=== PATIENT | female | born 1950 | race Caucasian/White ===

== ENCOUNTER → 2017-12-10 | Outpatient (CLI) | payer MEDICARE, OTHER | LOC: M.RAD 08:18 | DX: Z12.31 Encounter for screening mammogram for malignant neoplasm of breast (principal) ==

== ENCOUNTER → 2018-05-13 | Outpatient (CLI) | payer MEDICARE, OTHER | LOC: M.RAD 15:08 | DX: M81.0 Age-related osteoporosis without current pathological fracture (principal); Z78.0 Asymptomatic menopausal state ==

== ENCOUNTER → 2018-06-17 | Outpatient (CLI) | payer MEDICARE, OTHER | LOC: M.CT 07:09 | DX: M43.17 Spondylolisthesis, lumbosacral region (principal); K62.89 Other specified diseases of anus and rectum; K62.5 Hemorrhage of anus and rectum; K57.30 Diverticulosis of large intestine without perforation or abscess without bleeding; N13.2 Hydronephrosis with renal and ureteral calculous obstruction; K44.9 Diaphragmatic hernia without obstruction or gangrene; R10.84 Generalized abdominal pain ==

== ENCOUNTER → 2018-06-26 | Outpatient (CLI) | payer MEDICARE, OTHER | LOC: M.MRI 06-24 08:30 | DX: M47.817 Spondylosis without myelopathy or radiculopathy, lumbosacral region (principal); M41.86 Other forms of scoliosis, lumbar region; M51.27 Other intervertebral disc displacement, lumbosacral region; M48.061 Spinal stenosis, lumbar region without neurogenic claudication; M43.17 Spondylolisthesis, lumbosacral region ==

== ENCOUNTER → 2018-12-26 | Outpatient (CLI) | payer MEDICARE, OTHER | LOC: M.RAD 09:05 | DX: Z12.31 Encounter for screening mammogram for malignant neoplasm of breast (principal) ==

== ENCOUNTER 2019-09-11 08:38 | Emergency (ER) | payer MEDICARE, OTHER ==
[~2019-09-11] VITALS: Ht 157.5 cm; Wt 65.8 kg
[2019-09-11] MEDS ORDERED: OMEPRAZOLE40 MG PO (08:50)
[2019-09-11] MEDS ORDERED: EVISTA PO (08:50)
[2019-09-11] MEDS ORDERED: SIMVASTATIN80 MG PO (08:50)
[2019-09-11] MEDS ORDERED: FISH OIL 1,001000 M3 PO (08:51)
[2019-09-11] MEDS ORDERED: SUPER-D3+ SOFT1 EACH PO (08:52)
[2019-09-11] MEDS ORDERED: CALTRATE 600 +1 EAC1 PO (08:53)
[2019-09-11] MEDS ORDERED: LATANOPROST 0.2.5 ML OPHTHALMIC (08:54)
[2019-09-11] MEDS ORDERED: ASA81BEC PO (08:54)
[2019-09-11] MEDS ORDERED: OCUVITE ADULT1 EAC1 PO (08:55)
[2019-09-11] MEDS ORDERED: MONTELUKAST SODI4 M1 PO (08:55)
[2019-09-11] MEDS ORDERED: PEPCID40 MG PO (08:56)
[2019-09-11 09:16] LABS: HEMATOCRIT 47.2 % (37.0-47.0); HEMOGLOBIN 15.9 gm/dL (12.0-15.0); MCH 31.4 pg (26.0-34.0); MCHC 33.8 g/dL (28.0-37.0); MCV 93.2 fL (80.0-100.0); MPV 8.8 fl. (7.2-11.1); NUCLEATED RBCS 0 /100WBC; PLATELET COUNT* 280 thou/uL (150-400); RBC 5.06 mil/uL (4.20-5.00); RDW-CV 13.5 % (10.5-14.5)
[2019-09-11 09:20] LABS: CALCIUM 8.6 mg/dL (8.5-10.1); CREATININE 1.5 mg/dL (0.6-1.3); POTASSIUM 3.8 mmol/L (3.5-5.1)
[2019-09-11 09:24] LABS: ALBUMIN 4.3 g/dL (3.4-5.0); TOTAL BILIRUBIN 0.6 mg/dL (<0.1-1.0); TOTAL PROTEIN 8.5 g/dL (6.4-8.2)
[2019-09-11 09:52] LABS: ABSOLUTE LYMPHOCYTES 0.7 thou/uL (0.8-5.3); ABSOLUTE MONOCYTES 0.3 thou/uL (0.0-1.2); ABSOLUTE NEUTROPHILS 12.1 thou/uL (1.6-8.1); ANISOCYTOSIS 1+; PLATELET ESTIMATE ADEQUATE; POIKILOCYTOSIS 1+
[2019-09-11 10:19] LABS: URINE BILIRUBIN NEGATIVE (Negative); URINE BLOOD TRACE (Negative); URINE CLARITY CLEAR; URINE COLOR YELLOW; URINE GLUCOSE-RANDOM NEGATIVE (Negative); URINE KETONES NEGATIVE (Negative); URINE LEUKOCYTES-REFLEX NEGATIVE (Negative); URINE NITRITE-REFLEX NEGATIVE (Negative); URINE PROTEIN 1+ (Negative); URINE SPECIFIC GRAVITY 1.025 (1.005-1.030); URINE UROBILINOGEN 0.2 E.U./dl (0.2-1.0)
[2019-09-11] MEDS ORDERED: LOPERAMIDE 2 MG2 M1 PO (10:56)
--- NOTE | 2019-09-11 11:19 | EKG ---
[place] [address] ELECTROCARDIOGRAM REPORT Name: RUBINA SCHRADER Room: [facility]#: [id number] Admission: 09/11/19 Attend Phys: Discharge: Date of : 46 Date of Service: 09/11/19 0851 Report #: [id number] THIS REPORT FOR: cc: Lisa Woodard Linda J. DO Holkins, John M. MD [facility] ~ THIS REPORT FOR: //name// [facility] ED Test Date: 2019-09-11 Test Time: 08:51:00 Pat Name: RUBINA SCHRADER Department: Room: Gender: F Cad Intern: [facility] : 1950 Requested By: Daniel Stinson Order Number: [id number] MD: Buck Patton Measurements Intervals [place] Rate: 117 P: 35 OK: 115 QRS: 64 QRSD: 83 T: -4 QT: 332 QTc: 464 Interpretive Statements Sinus tachycardia Borderline repolarization abnormality Baseline wander in lead(s) V2 No previous ECG available for comparison Electronically Signed On 09-11-2019 11:19:05 FACILITIES DIRECTOR by Buck Patton [email or web address] <ELECTRONICALLY SIGNED> By: Buck Patton MD, [facility] 09/11/19 1119 0851 0851 Buck Patton MD, FAC /EPI
[2019-09-11 11:30] VITALS: BP 111/50
== END 2019-09-11 11:32 | disposition home or self-care (01) ==
LOC: M.ERS 08:38
PROVIDERS: Emergency Medicine
DX: E86.0 Dehydration (principal); E78.00 Pure hypercholesterolemia, unspecified

== ENCOUNTER → 2020-03-02 | Outpatient (CLI) | payer MEDICARE, OTHER ==
[~2020-03-02] MED LIST: ASA81BEC PO; CALTRATE 600 +1 EAC1 PO; EVISTA PO; FISH OIL 1,001000 M3 PO; LATANOPROST 0.2.5 ML OPHTHALMIC; LOPERAMIDE 2 MG2 M1 PO; MONTELUKAST SODI4 M1 PO; OCUVITE ADULT1 EAC1 PO; OMEPRAZOLE40 MG PO; PEPCID40 MG PO; SIMVASTATIN80 MG PO; SUPER-D3+ SOFT1 EACH PO
== END ==
LOC: M.RAD 06:49
PROVIDERS: ATTEND Family Medicine
DX: Z12.31 Encounter for screening mammogram for malignant neoplasm of breast (principal)

== ENCOUNTER → 2020-05-28 | Outpatient (CLI) | payer MEDICARE, OTHER ==
[2020-05-28 12:46] LABS: CREATININE 0.6 mg/dL (0.6-1.3)
== END ==
LOC: M.LAB 11:59 → M.CT 13:00
PROVIDERS: ATTEND Otolaryngology
DX: J35.3 Hypertrophy of tonsils with hypertrophy of adenoids (principal); M47.812 Spondylosis without myelopathy or radiculopathy, cervical region

== ENCOUNTER → 2020-09-27 | Outpatient (CLI) | payer MEDICARE, OTHER | LOC: M.RAD 12:58 | PROVIDERS: ATTEND Family Medicine | DX: M81.0 Age-related osteoporosis without current pathological fracture (principal) ==

== ENCOUNTER → 2021-02-08 | Outpatient (CLI) | payer MEDICARE, OTHER ==
[2021-02-08 12:37] LABS: CREATININE 0.6 mg/dL (0.6-1.3)
== END ==
LOC: M.LAB 12:00 → M.CT 13:00
PROVIDERS: ATTEND Nurse Practitioner
DX: K57.32 Diverticulitis of large intestine without perforation or abscess without bleeding (principal); R10.9 Unspecified abdominal pain; J98.11 Atelectasis; J98.6 Disorders of diaphragm

== ENCOUNTER → 2021-03-04 | Outpatient (CLI) | payer MEDICARE, OTHER | LOC: M.RAD 09:40 | PROVIDERS: ATTEND Family Medicine | DX: Z12.31 Encounter for screening mammogram for malignant neoplasm of breast (principal) ==